=== PATIENT | female | born 1990 | race Caucasian/White ===

== ENCOUNTER 2024-08-11 19:07 | Emergency (ER) | payer BC ==
[~2024-08-11] VITALS: Ht 160 cm; Wt 90.7 kg
[2024-08-11] MEDS: KETOROLAC TROMETHAMINE INJ 60 MG/2 ML VIAL IM ONE (20:28)
[2024-08-11] MEDS ORDERED: KETOROLAC TROMETHAMINE INJ 30 MG/ML VIAL ONE (20:28)
[2024-08-11] MEDS: ACETAMINOPHEN 325 MG TABLET PO ONE (20:28)
[2024-08-11] MEDS ORDERED: FLUT16SP16 BNOSTRILS (21:17)
[2024-08-11] MEDS ORDERED: CEFD300C3 PO (21:17)
[2024-08-11 21:26] VITALS: BP 141/99; TEMP 99.1; O2SAT 99
[2024-08-11 21:38] LABS: PREGNANCY TEST URINE QUAL NEGATIVE (NEGATIVE)
== END 2024-08-11 21:26 | disposition home or self-care (01) ==
LOC: ER 19:08
DX: J01.90 Acute sinusitis, unspecified (principal); F17.200 Nicotine dependence, unspecified, uncomplicated; I10 Essential (primary) hypertension; Z88.0 Allergy status to penicillin; Z20.822 Contact with and (suspected) exposure to COVID-19
CPT/HCPCS: 99283; 87426; 96372; 87804 ×2; 84703; J1885